=== PATIENT | male | born 1990 | race Caucasian/White ===

== ENCOUNTER 2021-04-14 19:22 | Emergency (ER) | payer OTHER, SELFPAY ==
[2021-04-14 19:22] VITALS: BP 129/85; PULSE 108; RESP 18; TEMP 36; O2SAT 98; BMI 21.8
--- NOTE | 2021-04-14 21:25 | ED.VIS.BACK ---
HPI History of Present Illness Chief Complaint: Back Informant: patient Onset/Context/Timing Onset: Days Context: Gradual Onset Timing: Intermittent Quality: Sharp Location: Lumbar Current Severity: Mild Maximum Severity: Moderate Worsened by: improves with Movement and Ambulation Relieved by: Remaining Still Associated Symptoms Associated Symptoms: Negative for Numbness, Tingling, Radiation to Right Leg, Radiation to Left Leg, Fever, Abdominal Pain, Dysuria, Unable to Ambulate, Unable to Transfer, Urinary Retention, Urinary Incontinence, Constipation and Fecal Incontinence Narrative Narrative: 30-year-old male had lumbar discectomy he thinks of L4-L5 from the spine surgeon at [facility]. Patient states this was done in November he was doing well then he had recurrent pain he had a postop MRI that he states really did not give him any specific new treatment. He has had intermittent pain now for the last several weeks worse with movement. He denies any fever or chills. He denies any bowel or bladder incontinence. He denies any numbness or weakness to his lower extremities. It is much worse if he is standing or walking. Better resting or lying down. Prior similar symptoms: Yes Recent Illness/Hospitalization: No PFSH PFSH Home Medications cyclobenzaprine 10 mg PO PRN PRN 04/14/21 [History Last Taken Unknown] meloxicam 15 mg PO PRN PRN 04/14/21 [History Last Taken Unknown] Allergy/AdvReac Type Severity Reaction Status Date / Time No Known Allergies Allergy Verified 04/14/21 19:24 Surgical History History of back surgery Social History Smoking Status: Never smoker ROS ROS ED ROS Narrative Back pain. No recent illness. No recent fever. Review of Systems ROS Unobtainable: Denies due to encephalopathy Constitutional Constitutional ED: Denies chills or fever(s) Eyes Eyes: Denies change in vision ENT ENT ED: Denies ear pain or sore throat Cardiovascular Cardiovascular: Denies chest pain Respiratory/Chest Respiratory/Chest: Denies dyspnea Gastrointestinal Gastrointestinal: Denies abdominal pain, diarrhea, nausea or vomiting Genitourinary Genitourinary ED: Denies dysuria or hematuria Musculoskeletal Musculoskeletal: Reports back pain; Denies arthralgias or myalgias Integumentary Denies abscess or rash Neurologic Neurologic: Denies headache(s) Psychiatric Psychiatric: Denies depression Endocrine Endocrinology: Denies polyuria Hematologic/Lymphatic Hematologic/Lymphatic: Denies easy bruising Allergic/Immunologic Allergic/Immunologic ED: Denies urticaria EXAM Physical Exam Narrative Exam Narrative: Well-appearing 22-year-old male. Vital signs stable afebrile. HEENT, neck, heart, lung, abdominal exams are unremarkable. Both upper and lower extremities are neurovascular intact with 5/5 motor strength. Dorsi plantarflexion intact. Negative straight leg raise bilaterally. Back exam is a well-healed lumbar midline incision. No signs of infection. Const Vital Signs: 04/14/21 19:22 Temperature 96.8 F L Temperature Source Temporal Pulse Rate 108 H Respiratory Rate 18 Blood Pressure 129/85 H Blood Pressure Mean 99 Pulse Ox 98 Oxygen Delivery Method Room Air Positive well nourished and well developed; Negative for obese, cachectic, contractures or unkempt General Appearance ED: well developed and NAD; Negative for unkempt, cachectic, contractures or pallor Nutritional Appearance: Negative for cachectic or obese HEENT Reports moist mucous membranes Negative for trauma or tenderness Eyes PERRL and EOMs intact bilaterally Neck no lymphadenopathy, supple and no JVD General: Negative for tenderness Resp normal respiratory effort and clear to auscultation bilaterally Cardio regular rate, regular rhythm, S1 normal heart sound, S2 normal heart sound and no murmurs GI normal to inspection, nondistended, normoactive bowel sounds, soft to palpation, non-tender, non-distended and no masses Inspection: Negative for abdominal distention Auscultation: Negative for hyperactive bowel sounds Palpation: Negative for tender, guarding or rebound tenderness present Back/Spine normal to inspection and no thoracic nor lumbar tenderness General Back: scar(s); Negative for CVA tenderness Cervical Spine: Negative for cervical spine tenderness and Negative for paracervical muscle tenderness Thoracic Spine / Upper Back: Negative for paraspinal muscle tenderness Lumbar Spine / Lower Back: straight leg raise negative bilaterally; Negative for straight leg raise positive right or straight leg raise positive - left Extremity normal to inspection and no clubbing, cyanosis or edema General Extremety ED: Negative for edema or tenderness General Extremity: Negative for edema Neuro oriented x3 and no sensory deficits noted Neuro Narrative: Bilateral lower extremities are neurovascular intact with 5-5 motor strength. Normal sensation. No cauda equina. Negative straight leg raise. Sensorium / Orientation: alert; Negative for confused, lethargic or stuporous Motor Exam: strength 5/5 throughout Psych mental status grossly normal Appearance: Negative for unkempt Attitude: No agitated Mood & Affect: Negative for depressed or tearful Skin no rashes or lesions noted and no wounds General Skin Exam: Negative for jaundice or pallor MDM MDM MDM Narrative Medical decision making narrative: Patient with low back pain primarily positional with movement. He had back surgery in November for L4-5 discectomy. His exam is benign. He has no signs of cauda equina. He will be treated with 2 [place] discharged to home his anti-inflammatories at home. He has a pending appointment with his spine surgeon. They will need to determine if he needs further imaging. Discharge Plan Triage Chief Complaint: Back ED Provider: Umang Hernandez Dx/Rx/DC Orders Clinical Impression: Back pain, Status post lumbar discectomy Instructions: ED Back and Neck Pain, General Prescriptions: No Action cyclobenzaprine 10 mg tablet 10 mg PO PRN PRN (Reason: muscle relaxer) RF: 0 meloxicam 15 mg tablet 15 mg PO PRN PRN (Reason: Pain) RF: 0 Primary Care Provider: Lashawn Orta NP Referrals: Lashawn Orta NP, BACKWINDER-C [Primary Care Provider] - Activity Restrictions/Additional Instructions: Use anti-inflammatories such as meloxicam or Motrin for pain. Call follow-up with your spine surgeon as soon as possible. Call them tomorrow to see if they can move up your appointment from the 15th. Return to the ER if fever, leg weakness or incontinence. Disposition Disposition: Home, Self Care
[2021-04-14] MEDS: HYDROcodone Bitartrate/Apap 5/325 Tablet PO (21:43)
== END 2021-04-14 21:45 | disposition home or self-care (01) ==
PROVIDERS: Emergency Provider Emergency Medicine; PCP Nurse Practitioner Family
DX: M54.5 Low back pain (principal); Z98.890 Other specified postprocedural states
CPT/HCPCS: 99283

== ENCOUNTER 2022-01-01 07:21 | Inpatient (IN) | payer OTHER, SELFPAY ==
[2022-01-01] VITALS (14 sets, daily range): BP systolic 96–135; BP diastolic 55–84; PULSE 48–94; RESP 14–18; TEMP 36.3–36.8; O2SAT 98–100; BMI 20.9
--- NOTE | 2022-01-01 06:15 | RAD_ITS ---
INDICATION: pre-op EXAMINATION/TECHNIQUE: X-RAY - XR Chest 2 Views COMPARISON: None. FINDINGS: Support devices: None. No focal consolidations, effusions, or sizable pneumothorax. Cardiomediastinal silhouette is within normal limits. No acute findings in the bones or soft tissues. RAD/Chest PA and Lateral IMPRESSION: Normal chest x-ray. Electronically Signed: Esequiel Weaver, at 9:51 EDT ,
[2022-01-01] MEDS: Lactated Ringers 1,000 ML 15 ML IV (06:45)
[2022-01-01] MEDS: Bupivacaine Mpf 0.5% 30 ML VIAL (06:52)
--- NOTE | 2022-01-01 07:19 | OP.PCM_ITS ---
Problems Associated Problem List Diagnoses (1) Lumbar stenosis: Report of Operation Date of Procedure: 01/01/22 Pre-Operative Diagnosis: 1. Lumbar stenosis, L5-S1 with spondylosis 2. Lumbar degenerative disc disease, L5-S1 Post-Operative Diagnosis: 1. Lumbar stenosis, L5-S1 with spondylosis 2. Lumbar degenerative disc disease, L5-S1 Surgery/Procedure Performed:: 1. L5-S1 posterior lumbar interbody fusion 2. Insertion of intervertebral biomechanical device x1 3. Structural allograft for spinal fusion 4. L5 bilateral laminectomies, foraminotomies, facetectomies, decompression of bilateral nerve roots 5. S1 bilateral laminectomies, foraminotomies, facetectomies, decompression of bilateral nerve roots 6. L5-S1 posterior lateral fusion 7. Pedicle screw fixation 8. Local autograft for spinal fusion 9. Neuro monitoring bilateral upper and bilateral lower extremities Description of Surgical Findings:: Statement of medical necessity: The patient is a 31-year-old male with intractable back and leg pain. Image studies confirm the above diagnoses. He has failed conservative treatment to include medication, physical therapy and injections. The patient opted for operative intervention understanding the risk to include but not limited to infection, bleeding, damage to nerves arteries and veins, possibility of spinal fluid leak, nonunion, hardware failure, continued pain, need for further surgery, deep vein thrombosis, pulmonary embolism, heart attack, risk of stroke or . The patient was identified in the preoperative holding area. There he received preoperative IV antibiotics, Ancef and was then transferred to the operative suite. Once in the operative suite after general endotracheal anesthesia was established, the patient was transferred to the [place] operating table in the prone position. All bony prominences were padded accordingly. The lumbar spine was prepped and draped in a standard surgical fashion. Bear hugger's were not turned on until the drapes were placed and sealed with [place]. A midline incision was made and taken down to the level of the lumbodorsal fascia. The fascia was divided and subperiosteal dissection was taken down to the level of the transverse processes and sacral ala of L5 and S1 respectively. Deep retractors were placed. A bone scalpel was then used to make cuts in the lamina of L5. Then a series of rongeurs and Kerrisons was used removing the spinous process and lamina of L5. Then facetectomies of greater than 50% were performed as well as foraminotomies decompressing the bilateral L5 and S1 nerve roots. Given the severity of the stenosis I needed to perform wide bilateral laminectomies and near complete facetectomies in order to decompress the neural elements, thus creating instability necessitating the fusion. The nerve roots and dura were identified and retracted medially and a knife was utilized to perform an annulotomy on the left at L5-S1. An endplate elevator, curettes, and pituitaries were utilized to remove disc material. Endplates were prepared with a rasp. An appropriate sized intervertebral peek cage device measuring 9 millimeters was packed with morselized cancellous allograft and then impacted into position completing the posterior lumbar interbody fusion at the L5-S1 level. I then proceeded with pedicle screw fixation. Starting points were found at the junction of the superior articular process and transverse processes of L5 and sacral ala of S1. A power bur was used for the starting points. Pedicle probes were placed bilaterally and then 6.5x50 millimeter screws were placed bilaterally at L5 and 6.5 x 45 millimeters screws were placed bilaterally at S1. The screws were tested with intraoperative neurophysiologic monitoring and they tested within normal limits. Connecting rods were applied and secured with set screws. I then proceeded with the posterior lateral fusion. This was accomplished by decorticating the transverse processes bilaterally at L5 and sacral ala bilaterally at S1. This decorticated bone was then bridged with local autograft from the decompression as well as morselized cancellous allograft therefore completing the posterior lateral fusion at the L5-S1 level. The incision was then thoroughly irrigated. Tisseel was placed over the dura as a hemostatic agent. A deep drain was placed. The fascia was closed with #1 Vicryl, subcutaneous with 2-0 Vicryl and skin with 2-0 nylon. A sterile dressing was applied with 4 x 4's ABD and tape. Sponge instrument needle counts were correct at the end of the case. Neurophysiologic monitoring was maintained at baseline throughout the duration of the case. The patient was extubated and taken to the PACU without incident. Surgeon: David Hightower Type of Anesthesia: General Drains: Hemovac Estimated Blood Loss (mL): 175 cc Fluids Replaced: 2000 cc Grafts/Implants Used: Unified spine, Talos, DBM, Vitae OS Complications None Admit VTE Documentation VTE Present on Admission: No
--- NOTE | 2022-01-01 07:19 | DS.PCM_ITS ---
Providers Date of Admission: 01/01/22 Primary Care Physician: Lashawn Orta ECONOMICS ANALYST-C Reason For Visit: Lumbar 5-Sacral 1 posterior lumbar fusion Diagnosis Discharge Diagnosis (1) Lumbar stenosis: Status: Acute Code(s): M48.061 - Spinal stenosis, lumbar region without neurogenic claudication Medications at Discharge Home Medications NK 12/18/21 hydrocodone-acetaminophen 1 tab PO Q6H 7 Days #28 tab 01/01/22 Hospital Course Operations - (L5-S1 posterior lumbar interbody fusion, decompression, posterior spinal fusion with instrumentation, use of allograft) Summary of Care Provided Minutes Spent on Discharge: 15 Hospital Course: The patient is a 31-year-old male who underwent L5-S1 posterior lumbar interbody fusion, decompression, posterior spinal fusion with instrument ation, use of allograft on 01/01/2022. He was subsequently admitted. The hospitalist was consulted for medical management. The patient progressed well. His pain was controlled and he was mobilizing well. He was seen and examined postoperative day 1 and his drain was pulled. No significant medical issues were reported. He was subsequently discharged home on 01/02/2022 to follow-up with Dr. Hightower in 3 weeks Physical Exam Narrative Seen and examined. Resting comfortably. Some postop soreness in the back but manageable. Pain controlled on medications. No other complaints including numbness tingling weakness or changes in bowel or bladder function. Const alert, oriented x3 and no apparent distress General Appearance: cooperative, comfortable and well kempt HEENT normocephalic and head/scalp atraumatic Eyes EOMs intact bilaterally and conjunctivae normal Neck full ROM General: normal visual inspection Chest inspection of chest normal and palpation of chest normal Resp normal respiratory effort and normal air movement Effort and Inspection: able to speak in complete sentences Cardio regular rate and peripheral pulses 2+ throughout GI soft to palpation, non-tender and non-distended Back/Spine Back/Spine Narrative: Dressing clean dry and intact. Incision well approximated with interrupted sutures in place. No tenderness erythema drainage or fluctuance. Cervical Spine: cervical ROM normal Thoracic Spine / Upper Back: normal to inspection Lumbar Spine / Lower Back: normal to inspection Extremity normal to inspection, full ROM, normal capillary refill, no clubbing, cyanosis or edema and no calf tenderness Skin no rashes or lesions noted General Skin Exam: no breakdown Neuro oriented x3, CN's II-XII intact bilaterally, moves all extremities, no focal motor deficits, no sensory deficits noted and deep tendon reflexes 2+ bilaterally Motor Exam: strength 5/5 throughout and muscle tone normal throughout Weight / BMI Weight Weight: 163 lb 2.273 oz Body Mass Index (BMI) 20.9 D/C Instructions Discharge Diet: No restrictions Lifting Restrictions: No repetitive bending, twisting, or lifting greater than 5 pounds. Back br Call your doctor if your incision/area has: Continuous Slow Oozing, Sudden Increased Bleeding, Increased Pain/ Swelling, Increased Redness, Foul Smelling Discharge and Swelling at the incision site Call your doctor if you observe: Fever of 101 or Higher, Coldness, Increased Pain, Numbness or Tingling, Change in Color, Inability to urinate, Inability to have a bowel movement, Using more than 1 pad per hour, Shortness of breath, Dizziness, Fainting spells, Swelling in the ankles, Chest pain, Prolonged hiccupping, Increased palpitations (irregular heartbeat), Calf discomfort and Uncontrolled pain Change Dressing in: Daily Remove Dressing in: Daily Cleanse incision/area with: Do not get Incision Wet and Keep Dressing Clean & Dry Additional Dressing/Incision Instructions: Daily dressing changes with iodine to incision, gauze and tape. [place] dressing to shower. Please Follow Up With: David Hightower DO When: 3 weeks Meaningful Use Info Meaningful Use Diagnoses (Choose all that apply): None applicable Discharge Plan Admission Admit Date/Time: 01/01/22 07:21 Attending Provider: David Hightower Primary Care Provider: Lashawn Orta NP Consulting Providers: Kimberlee Garland ; Rose Haro ; Higinio Higgins ; Stiven Berry ; Darrian Bourgeois ; Jony Donovan ; Mega Reyna ; Bharat Chambers ; Ivan Miller ; Larry Beach ; Indu Pablo ; Milton Caceres ; Martha Sunshine ; Ab Bush ; Rocky Turner ; Nick Hendrix ; Elgin Jamison ; Lashawn Jha ; Ninoska Cullen NP ; David Rubio Instructions Additional Instructions / Restrictions: 1. During your procedure, you received sedation through your IV. Please follow these instructions for the next 24 hours: Do not drive a motor vehicle, do not drink any alcoholic beverages, and do not sign any legal documents or make personal or business decisions. A responsible adult should stay with you at least 6 hours after the procedure. 2. Keep your surgical site/incision clean and the dressing dry and intact. Change her dressing daily. Use waterproof dressing to shower. You may use an ice pack at the surgical site to reduce any swelling or discomfort. 3. Monitor the incision site for any signs or symptoms of infection. Watch for redness, excessive swelling or drainage, or continued pain at the incision site after 3 days. Contact your physician immediately for a fever, chills or a temperature of 101.5? F or greater. 4. Take your medication exactly as prescribed by your physician. Do not attempt to wean yourself off any of your medications even though your pain is improving. This process needs to be carefully monitored by your doctor. Take any antibiotics prescribed exactly as directed and until they are gone. 5. Avoid stretching, bending, pulling, twisting or any sudden movements. Do not bend or twist at the waist. 6. No lifting greater than 5 pounds. 7. Do not operate a motor vehicle, equipment or a power tool while taking pain medication 8. Do not have any manipulation done by a chiropractor or any other physician without first consulting with the surgeon 9. Please contact our office if you are even scheduled for a CT scan or an MRI. 10. Please call us if you have any questions, problems or concerns. Discharge Orders/Prescriptions Prescriptions: New hydrocodone-acetaminophen 5-325 mg tablet 1 tab PO Q6H 7 Days Qty: 28 RF: 0 No Action NK RF: 0 Referrals / Follow Up: David Hightower DO [STAFF PHYSICIAN] - Lashawn Orta NP, ECONOMICS ANALYST-C [Primary Care Provider] -
--- NOTE | 2022-01-01 07:19 | PCM.PN.ORT ---
Subjective Subjective The patient was seen and examined postoperatively in the PACU. He is resting comfortably. He is having some postop soreness in the back. He denies any other complaints including numbness tingling or weakness Objective Data Objective Data Vital Signs: Vital Signs Temp Pulse Resp BP Pulse Ox 97.7 F L 48 L 14 105/72 100 01/01/22 06:47 01/01/22 06:47 01/01/22 06:47 01/01/22 06:47 01/01/22 06:47 Oxygen Delivery Method Room Air Weight: 163 lb 2.273 oz Body Mass Index (BMI) 20.9 Physical Exam Const alert, oriented x3 and no apparent distress HEENT normocephalic and head/scalp atraumatic Eyes EOMs intact bilaterally and conjunctivae normal Neck full ROM General: normal visual inspection Chest inspection of chest normal and palpation of chest normal Resp normal respiratory effort and normal air movement Cardio regular rate, regular rhythm and peripheral pulses 2+ throughout GI soft to palpation, non-tender and non-distended Back/Spine Back/Spine Narrative: Dressing clean dry and intact. Drain in place and functioning with small amount of serosanguineous fluid in Cervical Spine: cervical ROM normal Thoracic Spine / Upper Back: normal to inspection Lumbar Spine / Lower Back: normal to inspection Extremity normal to inspection, full ROM, normal capillary refill, no clubbing, cyanosis or edema and no calf tenderness Skin no rashes or lesions noted General Skin Exam: no breakdown Neuro oriented x3, CN's II-XII intact bilaterally, moves all extremities, no focal motor deficits, no sensory deficits noted and deep tendon reflexes 2+ bilaterally Motor Exam: strength 5/5 throughout and muscle tone normal throughout Assessment & Plan Assessment/Plan (1) Lumbar stenosis: PLAN: Okay to admit to floor See orders Pain control and mobilization as tolerated, back brace on at all times when out of bed Discharge planning, likely home tomorrow
--- NOTE | 2022-01-01 07:30 | RAD_ITS ---
INDICATION: L5-S1 POSTERIOR FUSION, DECOMPRESSION EXAMINATION/TECHNIQUE: 6 limited spot intraoperative films from lumbar fusion surgery are presented for evaluation. Total Fluoroscopic Time: 159.9 seconds AND number of Fluoroscopic Images: 6 COMPARISON: None. FINDINGS: Intraoperative images from placement of lumbar fusion hardware. Limited assessment of fine detail due to fluoroscopy images. Placement of posterior approach lumbar fusion hardware and intervertebral disc spacer at the L5-S1 level. The 4 transpedicular screws appear in appropriate position. 3 surgical clips remain in the superficial soft tissues on the final images. RAD/Lumbar Spine 2 or 3 Views IMPRESSION: Appropriate positioning of posterior approach lumbar fusion hardware and intervertebral disc spacer at the L5-S1 level. Please see intraoperative findings for additional details. Electronically Signed: Esequiel Weaver, at 13:14 EDT ,
[2022-01-01] MEDS: Cefazolin 2 GM in 0.9% Normal Saline 100 ML IV (07:38)
[2022-01-01] MEDS: Heparin 10,000 UNITS/10 ML Vial 10000 UNITS (08:12)
[2022-01-01] MEDS: THROMBIN (RECOMBINANT) 20,000 UNIT VIAL 20000 UNIT TOPICAL (08:12)
--- NOTE | 2022-01-01 15:14 | PCM.PN.HOSP ---
Subjective Subjective Patient seen and examined. Patient lying in bed no distress noted. Patient requesting nicotine patch and nicotine gum. Patient also states that his left eye is itchy and irritated. Objective Data Objective Data Vital Signs: Vital Signs Temp Pulse Resp BP Pulse Ox 97.6 F L 67 16 113/74 98 01/01/22 13:54 01/01/22 13:54 01/01/22 13:54 01/01/22 13:54 01/01/22 14:15 Oxygen Flow Rate (L/min) 2 Oxygen Delivery Method Nasal Cannula Weight: 163 lb 2.273 oz Body Mass Index (BMI) 20.9 Intake & Output: Intake and Output for Last 24 Hours 12/30/21 12/31/21 01/01/22 23:59 23:59 23:59 Intake Total 110 / 110 Output Total 410 / 410 Balance -300 / -300 Radiography Diagnostic Testing: Radiology Impression Chest X-Ray 01/01/22 06:15 IMPRESSION: Normal chest x-ray. Electronically Signed: Esequiel Weaver, at 9:51 EDT , Lumbar Spine X-Ray 01/01/22 07:30 IMPRESSION: Appropriate positioning of posterior approach lumbar fusion hardware and intervertebral disc spacer at the L5-S1 level. Please see intraoperative findings for additional details. Electronically Signed: Esequiel Weaver, at 13:14 EDT , Physical Exam Const alert, oriented x3 and no apparent distress HEENT head/scalp atraumatic Head and Scalp: normocephalic Eyes conjunctivae normal and no scleral icterus Eyelid: eyelids abnormal left upper eyelid erythema and swelling Neck no lymphadenopathy and supple General: trachea midline Resp normal respiratory effort, normal air movement and clear to auscultation bilaterally Effort and Inspection: able to speak in complete sentences and symmetric chest movement Cardio regular rate, regular rhythm, S1 normal heart sound, S2 normal heart sound and peripheral pulses 2+ throughout GI normal to inspection, nondistended, normoactive bowel sounds, soft to palpation and non-tender Extremity normal to inspection, full ROM and no clubbing, cyanosis or edema Peripheral Pulses: Yes pulses 2+ throughout Skin no rashes or lesions noted Neuro oriented x3 and moves all extremities Sensorium / Orientation: awake and alert Psych affect normal Assessment & Plan Assessment/Plan (1) Status post lumbar discectomy: (2) Tobacco abuse: PLAN: 1. Tobacco abuse -Patient requesting nicotine patch which was provided as well as nicotine gum. -Encourage patient to stop chewing 2. Status post lumbar discectomy -Pain management per orthopedic surgeon -PT to eval and treat DVT prophylaxis-SCDs 25 minutes spent in clinical coordination of patient's plan of care. Charges/Coding Visit Charges Inpatient E&M: 66649 Subs Hosp L2
[2022-01-01] MEDS: Lactated Ringers 1,000 ML 100 ML IV (15:27)
[2022-01-01] MEDS: Nicotine Polacrilex 2 MG GUM PO ×2 (16:42→22:34)
[2022-01-01] MEDS: Neomycin/Bacitracin/Polymyxin Opth. Ointment 1 APPLIC OPHTHALMIC ×2 (16:43→19:38)
[2022-01-01] MEDS: oxyCODONE 5 MG Tablet PO ×2 (16:43→21:04)
[2022-01-01] MEDS: Glycerin/Hypromellose/PEG400 15 ml Bottle 2 DRP LEFT EYE (19:38)
[2022-01-02 01:54] VITALS: BP 114/61; PULSE 70; RESP 16; TEMP 36.7; O2SAT 100
[2022-01-02] MEDS: oxyCODONE 5 MG Tablet PO ×2 (02:00→06:06)
[2022-01-02 04:03] VITALS: PULSE 74
[2022-01-02 05:47] VITALS: BP 114/61; PULSE 70; RESP 16; TEMP 36.7; O2SAT 100
[2022-01-02 07:12] VITALS: O2SAT 92
[2022-01-02 08:04] VITALS: BP 110/68; PULSE 70; RESP 18; TEMP 36.6; O2SAT 100
[2022-01-02 08:05] VITALS: BP 110/68; PULSE 70; RESP 18; TEMP 36.6; O2SAT 100
--- NOTE | 2022-01-02 08:53 | CASEMGMT ---
Social Work Nurse stating that discharge is in and pt is requesting to leave at this time. Dr. Hightower prescribing walker. SW met with pt and offered to have walker delivered here and pt denies stating he will go pick it up. JURGEN provided pt with list of DME providers and pt plans to warp picker walker at [facility]. JURGEN faxed script and insurance card to [facility] and called [facility] and informed pt would be coming to warp picker. JURGEN notified pt and he is understanding and will warp picker wheeled walker at [facility].
--- NOTE | 2022-01-02 09:15 | PCM.PN.HOSP ---
Subjective Subjective Seen and examined. Patient sitting in chair no distress noted. Patient getting ready to be discharged home Objective Data Objective Data Vital Signs: Vital Signs Temp Pulse Resp BP Pulse Ox 97.9 F 70 18 110/68 100 01/02/22 08:05 01/02/22 08:05 01/02/22 08:05 01/02/22 08:05 01/02/22 08:05 Oxygen Flow Rate (L/min) 2 Oxygen Delivery Method Room Air Weight: 163 lb 2.273 oz Body Mass Index (BMI) 20.9 Intake & Output: Intake and Output for Last 24 Hours 12/31/21 01/01/22 01/02/22 23:59 23:59 23:59 Intake Total 1489.08 / 1489.08 1561.67 / 1561.67 Output Total 910 / 910 1530 / 1530 Balance 579.08 / 579.08 31.67 / 31.67 Radiography Diagnostic Testing: Radiology Impression Chest X-Ray 01/01/22 06:15 IMPRESSION: Normal chest x-ray. Electronically Signed: Esequiel Owen, at 9:51 EDT , Lumbar Spine X-Ray 01/01/22 07:30 IMPRESSION: Appropriate positioning of posterior approach lumbar fusion hardware and intervertebral disc spacer at the L5-S1 level. Please see intraoperative findings for additional details. Electronically Signed: Esequiel Weaver, at 13:14 EDT , Physical Exam Const alert, oriented x3 and no apparent distress HEENT head/scalp atraumatic Eyes conjunctivae normal and no scleral icterus Eyelid: eyelids normal Neck no lymphadenopathy and supple General: trachea midline Resp normal respiratory effort, normal air movement and clear to auscultation bilaterally Effort and Inspection: able to speak in complete sentences and symmetric chest movement Cardio regular rate, regular rhythm, S1 normal heart sound, S2 normal heart sound and peripheral pulses 2+ throughout GI normal to inspection, nondistended, normoactive bowel sounds, soft to palpation and non-tender Extremity normal to inspection, full ROM and no clubbing, cyanosis or edema Skin no rashes or lesions noted Neuro oriented x3 and moves all extremities Sensorium / Orientation: awake and alert Psych affect normal Assessment & Plan Assessment/Plan (1) Status post lumbar discectomy: (2) Tobacco abuse: PLAN: 1. Tobacco abuse -Patient requesting nicotine patch which was provided as well as nicotine gum. -Encourage patient to stop chewing 2. Status post lumbar discectomy -Pain management per orthopedic surgeon -PT to eval and treat DVT prophylaxis-SCDs 11 minutes spent in clinical coordination of patient's plan of care. Charges/Coding Visit Charges Inpatient E&M: 28325 Subs Hosp L2
== END 2022-01-02 09:00 | disposition home or self-care (01) | DRG 460 ==
LOC: SDC 08:40 → MS3 08:40
PROVIDERS: Admitting Provider Orthopaedic Surgery; PCP Nurse Practitioner Family; Referring Provider Orthopaedic Surgery; Visit Provider Orthopaedic Surgery
PROC: 0SG00AJ Fusion of Lumbar Vertebral Joint with Interbody Fusion Device, Posterior Approach, Anterior Column, Open Approach (ICD-10-PCS; CPT 22630; principal; 2022-01-01 07:00)
DX: M48.07 Spinal stenosis, lumbosacral region (principal); F17.200 Nicotine dependence, unspecified, uncomplicated; M47.817 Spondylosis without myelopathy or radiculopathy, lumbosacral region; M51.37 Other intervertebral disc degeneration, lumbosacral region
CPT/HCPCS: 71046; 72100; 76000; 97162; 99251; 99406; C1713; J7120; G0463; J2405